=== PATIENT | female | born 1960 | race Caucasian/White ===

== ENCOUNTER 2024-07-08 08:26 | Emergency (ER) | payer MEDICARE, SELFPAY ==
--- NOTE | ~2024-07-08 | XR_ITS ---
XR shoulder RT min 2V Ordering provider: Lindsay Domingo NP History: . FALL FORWARDS WITH ARMS OUT, GEN PAIN . Comparison: None. FINDINGS: BONES: No acute fracture or dislocation. JOINT SPACES: The acromioclavicular joint is normal. The glenohumeral joint is normal. SOFT TISSUES: Normal. IMPRESSION: No acute osseous abnormality right shoulder. Reviewed, dictated and finalized at location A.
--- NOTE | ~2024-07-08 | XR_ITS ---
EXAMINATION: XR thoracic spine 3V DATE: 07/08/2024 09:11 INDICATION: Fall. Thoracic spine pain. TECHNIQUE: 3 views of thoracic spine were obtained. COMPARISON: None. FINDINGS: There is fatty resection curvature thoracic spine. Vertebral body heights are normal. There is mild to moderately decreased disc height at multiple levels, worst in the mid and upper thoracic spine. IMPRESSION: 1. Moderate thoracic spondylosis. Reviewed, dictated and finalized at location A.
[2024-07-08 08:38] VITALS: BP 112/73; PULSE 71; RESP 16; TEMP 36.3; O2SAT 100
--- NOTE | 2024-07-08 08:42 | ED.FALL ---
HPI - Fall General Chief Complaint: Fall Stated Complaint: Fall Injury/Back Pain/Right Shoulder Time Seen by Provider: 07/08/24 08:42 Source: patient Mode of arrival: ambulatory Limitations: no limitations History of Present Illness HPI Narrative: 64-year-old female presents with complaint of mid back pain and right shoulder pain. Patient states that she fell approximately 2 weeks ago. It was raining outside and she slipped on wet floor in baked lobby. But arms down to catch herself. Did not hit her head. Patient states mother recently and has been cleaning out home. Is moving a lot of furniture. Taking [id number] Tylenol To treat pain. Pain worse with movement. Wants to make sure she does not have fracture. All systems reviewed and negative except as noted above. Related Data Home Medications Medication Instructions Recorded Confirmed hydrochlorothiazide 12.5 mg tablet 12.5 mg PO DAILY 07/08/24 07/08/24 metformin 500 mg tablet 500 mg PO QAM 07/08/24 07/08/24 pregabalin 50 mg capsule 50 mg PO BID 07/08/24 07/08/24 tizanidine 4 mg tablet 4 mg PO Q8H PRN MUSCLE SPASMS 07/08/24 07/08/24 Allergies Allergy/AdvReac Type Severity Reaction Status Date / Time No Known Allergies Allergy Verified 07/08/24 09:09 Review of Systems Review of Systems: CONSTITUTIONAL: Denies fever, chills, or sweats. EYES: Denies visual changes, redness, or discharge. ENT: Denies rhinorrhea, congestion, sore throat, or otalgia. CARDIOVASCULAR: Denies chest pain, palpitations, or edema. RESPIRATORY: Denies cough or dyspnea. GASTROINTESTINAL: Denies abdominal pain, nausea, vomiting, or diarrhea. GENITOURINARY: Denies dysuria or hematuria. SKIN: Denies rash or itching. MUSCULOSKELETAL: Reports mid/ upper back pain. reports right shoulder pain. Denies joint pain, or myalgia. NEUROLOGIC: Denies headache, numbness, or weakness. PSYCHIATRIC: Denies anxiety or depression. All other systems reviewed are negative, except as documented in HPI. PMFSH Comments At time of signature, agree with nursing past medical, surgical, social and family history. There is no relevant family history pertinent to the presenting complaint. Exam Narrative: GENERAL: This is a well-nourished, well-developed patient, in no apparent distress. HEAD: normocephalic, atraumatic. EYES: PERRL. Sclera clear/white. Vision is grossly intact. EARS: External ears normal NOSE: External nose normal NECK: Neck supple, non-tender without lymphadenopathy, masses or thyromegaly. CARDIOVASCULAR: Regular rate and rhythm without murmurs, gallops, or rubs. RESPIRATORY: Clear to auscultation. Breath sounds equal bilaterally. No wheezes, rales, or rhonchi. SKIN: warm, Dry, intact with no suspicious lesions or rash, good texture and turgor. NEURO: awake, alert, and oriented to person, place and time. There were no obvious focal neurologic abnormalities. EXTREMITIES: Generalized tenderness to right shoulder, no point tenderness. Range of motion and strength intact. Negative drop-arm test. BACK: tenderness T6,T7. no deformity Course Course Level of Care: Express Care Visit Vital Signs Vital signs: Vital Signs Temperature 36.3 C L 07/08/24 08:38 Pulse Rate 71 07/08/24 08:38 Respiratory Rate 16 07/08/24 08:38 Blood Pressure 112/73 07/08/24 08:38 Pulse Oximetry 100 07/08/24 08:38 Oxygen Delivery Room Air 07/08/24 08:38 Temperature 36.3 C L 07/08/24 08:38 Pulse Rate 71 07/08/24 08:38 Respiratory Rate 16 07/08/24 08:38 Blood Pressure 112/73 07/08/24 08:38 Pulse Oximetry 100 07/08/24 08:38 Oxygen Delivery Room Air 07/08/24 08:38 Reviewed MDM - Fall MDM Narrative Medical decision making narrative: discussed x-ray results with patient. Right shoulder and thoracic spine negative for fracture. Recommend patient take [id number] Tylenol to treat pain. Prescribed methocarbamol. Will follow up with chirag
== END 2024-07-08 09:53 | disposition home or self-care (01) ==
PROVIDERS: Emergency Provider Nurse Practitioner Family; PCP Nurse Practitioner Family
DX: S46.911A Strain of unspecified muscle, fascia and tendon at shoulder and upper arm level, right arm, initial encounter (principal); S29.012A Strain of muscle and tendon of back wall of thorax, initial encounter; W01.0XXA Fall on same level from slipping, tripping and stumbling without subsequent striking against object, initial encounter; E11.9 Type 2 diabetes mellitus without complications; Z79.84 Long term (current) use of oral hypoglycemic drugs
CPT/HCPCS: 72072; 73030; 99204; G0463

== ENCOUNTER 2024-07-19 09:28 | Emergency (ER) | payer MEDICARE, SELFPAY ==
[2024-07-19 09:39] VITALS: BP 122/74; PULSE 63; RESP 16; TEMP 36.8; O2SAT 100
--- NOTE | 2024-07-19 10:25 | ECG_ITS ---
Test Date: 2024-07-19 10:31:39 Measurements Intervals [place] Rate: 56 P: 13 NJ: 160 QRS: -41 QRSD: 85 T: 21 QT: 475 QTc: 459 Interpretive Statements SINUS RHYTHM LEFT AXIS DEVIATION PATTERN CONSISTENT WITH PULMONARY DISEASE BASELINE ARTIFACT- I, II, III, AVR, AVL, AVF, V1, V4-V5 BORDERLINE ECG No previous ECG available for comparison Electronically Signed On 07-19-2024 11:18:29 CDT by Jonathon Padgett D.O.
--- NOTE | 2024-07-19 10:27 | ED.GENADULT ---
HPI - General Adult General Chief complaint: Ear Stated complaint: Dizziness/Ringing in Ear Source: patient Mode of arrival: ambulatory Limitations: no limitations History of Present Illness HPI narrative: Patient presents for evaluation of dizziness. Symptom onset 3 days ago. Symptoms are intermittent, occurring approximately 8 times per day and lasting minutes. Symptoms tend to occur when moving from sitting to standing position. She also reports tinnitus and the sensation of the room spinning. She has an occasional cough. She denies any fever, chills, nausea, vomiting, shortness of breath, urinary symptoms, chest pain. No history of similar symptoms. She is diabetic and adherent to metformin therapy. Blood sugars at home around 125. Related Data Home Medications Medication Instructions Recorded Confirmed hydrochlorothiazide 12.5 mg tablet 12.5 mg PO DAILY 07/08/24 07/19/24 metformin 500 mg tablet 500 mg PO QAM 07/08/24 07/19/24 pregabalin 50 mg capsule 50 mg PO BID 07/08/24 07/19/24 tizanidine 4 mg tablet 4 mg PO Q8H PRN MUSCLE SPASMS 07/08/24 07/19/24 Allergies Allergy/AdvReac Type Severity Reaction Status Date / Time No Known Allergies Allergy Verified 07/19/24 09:43 Review of Systems Review of Systems: CONSTITUTIONAL: Denies fever, chills, or sweats. EYES: Denies visual changes, redness, or discharge. ENT: Reports tinnitus. Denies rhinorrhea, congestion, sore throat, or otalgia. CARDIOVASCULAR: Denies chest pain, palpitations, or edema. RESPIRATORY: Reports mild cough. Denies dyspnea. GASTROINTESTINAL: Denies abdominal pain, nausea, vomiting, or diarrhea. GENITOURINARY: Denies dysuria or hematuria. SKIN: Denies rash or itching. MUSCULOSKELETAL: Denies back pain, joint pain, or myalgia. NEUROLOGIC: Reports dizziness and sensation of the room spinning PSYCHIATRIC: Denies anxiety or depression. [facility] Past Medical History Medical History Diabetes HTN (hypertension) Surgical History Surgical History No pertinent past surgical history Family History Family History (Updated 07/19/24 @ 10:33 by ALAN Tinoco, ) Mother Family history non-contributory Social History Social History Substance use: never Living arrangements: with family Gender identity (if verbalized by the patient): Female Sexual Orientation (if Verbalized by the Patient): Straight or Heterosexual Spiritual care concerns: No Exam Narrative: GENERAL: Well-appearing, well-nourished, and in no acute distress. HEAD: Normocephalic, atraumatic. EYES: PERRLA and EOMI. ENT: Nares clear, no rhinorrhea or epistaxis. Mucous membranes moist. Oropharynx without tonsillar hypertrophy exudate or other lesions. Bilateral TMs pearly thorpe nonbulging NECK: Supple. No adenopathy or masses. No carotid bruits or JVD CHEST: Clear to auscultation. No respiratory distress. No wheezes rales or rhonchi HEART: Regular rate and rhythm. No murmur heard. Normal peripheral pulses. ABDOMEN: Soft, nontender, nondistended, normal active bowel sounds. EXTREMITIES: Normal range of motion. No edema. SKIN: Warm, dry, no rash. NEURO: No focal deficits. Alert and oriented x3. PSYCH: Normal mood and affect. Course Course Emergency Course: This is a 64-year-old female who presented for evaluation tinnitus, sensation of the room spinning and dizziness. COVID and influenza negative. EKG with no acute ischemic changes. UA with 1+ leukocytes. Exam is consistent with UTI and vertigo. I offered to send her to the ER for lab work. She declined. Will DC with Bactrim and meclizine. Increase hydration. Follow up with primary provider. Go to the ER for worsening symptoms. Patient in agreement with plan of care Level of Care: Express Care Visit Vital Signs V
[2024-07-19 10:32] VITALS: BP 131/75; PULSE 56
[2024-07-19 10:35] VITALS: BP 131/85; PULSE 69
[2024-07-19 10:38] VITALS: BP 118/79; PULSE 72
[2024-07-19 10:56] LABS: EDINFLUASCREEN Negative; EDINFLUBSCREEN Negative; EDUAAPPEAR Clear; EDUABILI Negative; EDUABLOOD Negative; EDUACOLOR1 Yellow; EDUAGLUCOSE Negative; EDUAKETONE Negative; EDUALEUKO 1+; EDUANITRATE Negative; EDUAPROTEIN Negative; EDUASPGRAVITY 1.015; EDUAUROBILI 0.2
== END 2024-07-19 11:00 | disposition home or self-care (01) ==
PROVIDERS: Emergency Provider Nurse Practitioner; PCP Nurse Practitioner Family
DX: H93.19 Tinnitus, unspecified ear (principal); R42 Dizziness and giddiness; N39.0 Urinary tract infection, site not specified; Z20.822 Contact with and (suspected) exposure to COVID-19; E11.9 Type 2 diabetes mellitus without complications; Z79.84 Long term (current) use of oral hypoglycemic drugs; I10 Essential (primary) hypertension
CPT/HCPCS: 81003; 87086; 87426; 87804; 93005; 99213; G0463

== ENCOUNTER 2024-12-22 09:15 | Emergency (ER) | payer MEDICARE, SELFPAY ==
--- NOTE | ~2024-12-22 | XR_ITS ---
EXAMINATION: XR ribs RT 2V DATE: 12/22/2024 09:59 INDICATION: Right chest pain. Fall. TECHNIQUE: 2 views of the right ribs on 4 radiographs were obtained. COMPARISON: None. FINDINGS: There is no right-sided pneumonia, pleural effusion, or pneumothorax. The heart size is nor mal. IMPRESSION: 1. No rib fracture. Reviewed, dictated and finalized at location A. ODUCTION SPECIALIST IMPRESSION: 1. No rib fracture.
--- NOTE | ~2024-12-22 | XR_ITS ---
AP and lateral views of the right hip Clinical history: Pain Findings: No acute fracture or dislocation is seen. Osseous alignment is anatomic. Right hip joint is intact. Soft tissues are unremarkable. Impression: No significant abnormality is seen. Reviewed, dictated and finalized at location M. GHT SERVICE INSPECTOR Impression: No significant abnormality is seen.
[2024-12-22 09:22] VITALS: BP 133/92; PULSE 80; RESP 20; TEMP 36.6; O2SAT 100
--- NOTE | 2024-12-22 09:29 | ED.LOWEXIN ---
HPI - Extremity Injury (Lower) General Chief Complaint: Extremity Injury, Lower Stated Complaint: right hip & knee injury Source: patient Mode of arrival: ambulatory Limitations: no limitations History of Present Illness HPI Narrative: 64-year-old female presented for complaint of right rib, right hip, and right knee pain after fall yesterday. She states she was walking up the stairs, missed the 1st step and fell landing on hands and knees as well as striking the rib and hip. Denies shortness of breath, hemoptysis, wheezing, nausea, vomiting, or dizziness. Took ibuprofen. started using a quad cane for symptoms. Denies numbness, tingling, weakness of the lower extremities, or change in gait, saddle paresthesia or loss of bowel or bladder. Related Data Home Medications ?Medication ?Instructions ?Recorded ?Confirmed ?Last Taken ?Type hydrochlorothiazide 12.5 mg tablet 12.5 mg PO DAILY 07/08/24 07/19/24 Unknown History metformin 500 mg tablet 500 mg PO QAM 07/08/24 07/19/24 Unknown History pregabalin 50 mg capsule 50 mg PO BID 07/08/24 07/19/24 Unknown History tizanidine 4 mg tablet 4 mg PO Q8H PRN MUSCLE SPASMS 07/08/24 07/19/24 Unknown History atorvastatin 80 mg tablet mg 12/22/24 Unknown History omeprazole 40 mg capsule,delayed mg 12/22/24 Unknown History release Allergies Allergy/AdvReac Type Severity Reaction Status Date / Time No Known Allergies Allergy Verified 12/22/24 09:34 Review of Systems Review of Systems: CONSTITUTIONAL: Denies body aches, fever, chills EYES: Denies visual changes ENT: Denies rhinorrhea, congestion CARDIOVASCULAR: Denies chest pain, palpitations, or edema. RESPIRATORY: Denies cough or dyspnea. GASTROINTESTINAL: Denies abdominal pain, nausea, vomiting, or diarrhea. SKIN: Denies rash, itching, or wounds. MUSCULOSKELETAL: per HPI NEUROLOGIC: Denies headache, numbness, tingling, or weakness. All systems reviewed & are unremarkable except as noted in HPI and below PMFSH Past Medical History Medical History HTN (hypertension) Diabetes Surgical History Surgical History No pertinent past surgical history Family History Family History Mother Family history non-contributory Social History Social History Substance use: never Living arrangements: with family Gender identity (if verbalized by the patient): Female Sexual Orientation (if Verbalized by the Patient): Straight or Heterosexual Spiritual care concerns: No Comments At time of signature, I have reviewed and agree with nursing past medical, surgical, social and family history unless otherwise noted. Please see nursing chart for further information. There is no relevant family history pertinent to the presenting complaint Exam Narrative: GENERAL: Well-appearing CHEST: Speaks in full sentences. No respiratory distress. HEART: Regular rate and rhythm. Normal and equal peripheral pulses. EXTREMITIES: RLE has normal strength and sensation, normal range of motion at knee and hip, reports pain with movement. No edema or ecchymosis to hip or knee. posterior hip tenderness with palpation. No open wounds, skin tenting, or obvious deformity; alignment normal, pulse palpable and equal bilaterally, skin warm, dry, pink. Capillary refill less than 3 seconds. Ambulating using Quad cane. MUSC: right lateral rib tender with palpation approx 6-7 area. SKIN: Warm, dry, no rash. NEURO: Alert and oriented x3. PSYCH: Normal mood and affect Course Course Emergency Course: Patient is aware of diagnosis, understands and agrees to treatment plan. Anticipatory guidance given. Patient agrees to follow-up as directed and is aware of reasons to seek care at the emergency department. Portions of this record may have been created with voice recognition software Level of Care: Express Care Visit Vital Signs Vital signs: Vital Signs Temperature 97.8 F 12/22/24 09:22 Pulse Rate 80 12/22/24 09:22 Respiratory Rate 20 12/22/24 09:22 Blood Pressure 133/92 H 12/22/24 09:22 Pulse Oximetry 100 12/22/24 09:22 Oxygen Delivery Room Air 12/22/24 09:22 Temperature 97.8 F 12/22/24 09:22 Pulse Rate 80 12/22/24 09:22 Respiratory Rate 20 12/22/24 09:22 Blood Pressure 133/92 H 12/22/24 09:22 Pulse Oximetry 100 12/22/24 09:22 Oxygen Delivery Room Air 12/22/24 09:22 Reviewed MDM - Extremity Injury (Lower) MDM Narrative Medical decision making narrative: Discussed physical exam findings and xrays of right hip and ribs. Advised supportive measures and signs/symptoms to go to the ER. Pt is appropriate for outpt treatment and f/u. Differential Diagnosis Differential diagnosis: Likely other (Hip dislocation, impingement, femur fracture, pelvic fracture, hip bursitis, psoas abscess, piriformis syndrome, septic arthritis, osteoarthritis, avascular necrosis of hip, lumbar radiculopathy) Discharge Plan Discharge Clinical Impression: Rib pain on right side, Hip pain, acute Patient Disposition: Home, Self-Care Condition: Stable Instructions: Antibiotic Form, Hip Contusion (ED), Rib Contusion (ED) Additional Instructions: Rest. Avoid running or excessive walking or anything that worsens the symptoms Tylenol 1000mg every 8 hours as needed You can alternate with ibuprofen 600mg Alternate ice/heat to the site. Lidocaine or salon pas pain patch or use pain cream like icy/hot or biofreeze. Follow up with your primary care provider as needed in 1 week Go to the ER for worsening symptoms or concerns Patient Language: Slovenian Prescriptions: No Action meclizine 25 mg tablet 25 mg PO TID PRN (Reason: dizziness) Qty: 15 0RF atorvastatin 80 mg tablet omeprazole 40 mg capsule,delayed release(DR/EC) metformin 500 mg tablet 500 mg PO QAM hydrochlorothiazide 12.5 mg tablet 12.5 mg PO DAILY pregabalin 50 mg capsule 50 mg PO BID tizanidine 4 mg tablet 4 mg PO Q8H PRN (Reason: MUSCLE SPASMS) methocarbamol 500 mg tablet 500 mg PO Q6H PRN (Reason: muscle pain/spasm) Qty: 30 0RF Follow-up/Referrals: Violet,Lindsay Carcamo NP [Primary Care Provider] - Time of Disposition: 10:27
--- OUTSIDE RECORDS SUMMARY | 2024-12-22 09:50 | XMS_ITS | Referral Summary ---
Author Organization [facility] Address [address] [place] [address] Care Team Providers Care Receivable Manager Name Role Phone Evans Coelho DO Unavailable [phone] Selvin Lawrence MD Primary Care Provider [phone] Encounters Date Type Department Care Team Description 10/21/2024 ACO Clinical Pharmacist [facility] [address] [address] Xiomara Jordan RPh 09/24/2024 Telephone [facility] [address] [address] Selvin Lawrence MD Test Results 09/23/[address] [address] Tomasa Garrett Unsuccessful Phone Call 1 ([employer] dm eye exam) from Last 3 Months Allergies No known active allergies Medications blood glucose diagnostic (FREESTYLE LITE STRIPS) stripIndicatio ns:Type 2 diabetes mellitus without complication, without long-term current use of insulin ([facility]) ([facility]) Use one strip BID 100 each 3 05/26/20 18 Active blood-glucose meter (FreeStyle Girard Lite) kit Use as directed 1 each 05/30/20 20 Active Restasis 0.05 % ophthalmic emulsion Administer 1 drop into both eyes every 12 (twelve) hours 05/12/20 21 Active witch Bienvenido (TUCKS) 50 % pads, medicatedIndic ations:Hemorrh oids Apply topically 5 times daily as needed (Hemorrhoids) After BM's as needed 100 each 1 01/05/20 22 Active polyethylene glycol (MIRALAX) 17 gram/dose powder Take 17 g by mouth 2 (two) times a day as needed 05/22/20 22 Active senna 8.6 mg tablet TAKE 1 TABLET BY MOUTH 2 TIMES DAILY NEEDED FOR CONSTIPATION - 3RD LINE. 05/22/20 22 Active cyanocobalamin (Vitamin B-12) 1,000 mcg tablet TAKE 1 TABLET BY MOUTH EVERY DAY 90 tablet 1 10/19/20 22 Active lisinopriL (PRINIVIL,ZEST RIL) 40 mg tablet Take 1 tablet (40 mg total) by mouth daily 90 tablet 3 12/18/19 23 Active oxybutynin (DITROPAN) 5 mg tablet Take 1 tablet (5 mg total) by mouth daily 90 tablet 3 12/18/19 23 Active magnesium oxide 400 mg magnesium capsule Take 1 capsule by mouth daily Active naproxen (NAPROSYN) 500 mg tabletIndicati ons:Left wrist pain,Left hand pain Take 1 tablet (500 mg total) by mouth 2 (two) times a day as needed for pain (pain) for up to 7 days 14 tablet 07/02/20 23 Active citalopram (CeleXA) 20 mg tablet TAKE 1 TABLET BY MOUTH EVERY DAY 90 tablet 3 01/08/20 24 Active hydroCHLOROthi azide 12.5 mg tablet TAKE 1 TABLET BY MOUTH EVERY DAY 90 tablet 3 06/01/20 24 Active tiZANidine (ZANAFLEX) 4 mg tablet TAKE 1 TABLET BY MOUTH EVERY 8 HOURS NEEDED FOR MUSCLE SPASMS 270 tablet 1 07/09/20 24 Active phenazopyridin e (PYRIDIUM) 100 mg tablet Take 1 tablet (100 mg total) by mouth 3 (three) times a day as needed for urinary pain 10 tablet 07/09/20 24 Active metFORMIN (GLUCOPHAGE) 500 mg tablet TAKE ONE TABLET BY MOUTH WITH BREAKFAST. 90 tablet 3 09/07/20 24 Active methocarbamoL (ROBAXIN) 500 mg tablet TAKE 1 TABLET BY MOUTH EVERY 6 HOURS NEEDED FOR MUSCLE PAIN OR SPASMS 07/09/20 24 Active omeprazole (PriLOSEC) 40 mg capsule Take 1 capsule (40 mg total) by mouth daily 30 capsule 11 09/08/20 24 025 Active atorvastatin (LIPITOR) 80 mg tablet Take 1 tablet (80 mg total) by mouth daily 90 tablet 4 09/08/20 Active flash glucose scanning reader (FreeStyle Yair 2 Roscoe) misc Use as directed to monitor blood sugars 1 each 09/08/20 24 Active flash glucose sensor (FreeStyle Yair 2 Sensor) kit Use as directed to monitor blood sugar 1 kit 3 09/08/20 24 Active pregabalin (LYRICA) 50 mg capsule TAKE 1 CAPSULE BY MOUTH TWICE A DAY 60 capsule 12/14/19 25 Active pregabalin (LYRICA) 50 mg capsule TAKE 1 CAPSULE BY MOUTH TWICE A DAY 60 capsule 11/03/20 24 025 Discontinued Active Problems Problem Noted Date Diagnosed Date Other chest pain 09/08/2024 Assessment & Plan (09/08/2024 8:52 AM CDT): Likely related to GERD. Will switch to omeprazole. Will also order echo to rule out any valvular disorders. Red flags reviewed. Acute cystitis without hematuria 07/09/2024 Assessment & Plan (07/09/2024 3:56 PM CDT): UA dipstick completed. Abx sent. Aware to complete full course of abx. Reviewed abx Ses/scheduling. Push fluids. UA sent for culture. Will call once results rec'd. Red flags reviewed. Hypertension associated with diabetes 12/18/2023 Assessment & Plan (09/08/2024 8:51 AM CDT): Normotensive. Will continue lisinopril hydrochlorothiazide at this time. Reviewed heart healthy diet. See plan as above as well. Assessment & Plan (07/09/2024 3:59 PM CDT): Well controlled on hydrochlorothiazide, lisinopril. No changes. Will continue to monitor. Assessment & Plan (12/18/2023 10:32 AM WHIRLEY OPERATOR): Normotensive. Continue lisinopril, hydrochlorothiazide. Will continue to monitor. Reviewed dash diet. DAREN (acute kidney injury) 06/16/2022 High anion gap metabolic acidosis 06/16/2022 Lactic acidosis 06/16/2022 Hospital discharge follow-up 06/06/2022 Assessment & Plan (06/06/2022 9:46 AM CDT): I have reviewed the hospital record, medications, and relevant testing from Radha Torres's recent admission. Complications and discharge plan have been noted, reviewed. Post-discharge testing has not been ordered. Recommend ice to the area 3-4 times a day, 20 minutes Voltaren OTC to area 3 times a day x 1-2 weeks Avoid excessive sitting without using Roho cushion Acute renal failure (ARF) 05/20/2022 Constipation 05/20/2022 HLD (hyperlipidemia) 05/20/2022 Hypochloremia 05/20/2022 Hypokalemia 05/20/2022 Hyponatremia 05/20/2022 Assessment & Plan (09/08/2024 8:51 AM CDT): Chronic. She does take hydrochlorothiazide. Has been on for quite some time. Admits she has been drinking a lot of water lately. Will decreased p.o. water intake. Recheck BMP next week. If not improved may consider dose decrease of hydrochlorothiazide. Red flags reviewed. She is in agreement with plan and states understanding. Hypotension 05/20/2022 Normocytic anemia 05/20/2022 Stercoral colitis 05/20/2022 Encounter for Medicare annual wellness exam 07/20 Assessment & Plan (09/08/2024 7:59 AM CDT): Visit preventive in nature. We reviewed medications, chronic conditions, risk factors, lifestyle recommendations. Reviewed immunization recommendations. Follow-up in 6 months for chronic conditions and 1 year for annual wellness. Assessment & Plan (10/03/2021 10:56 AM WHIRLEY OPERATOR): AWV in office today Patient needs cervical cancer screen, will plan to do at upcoming visits. Due for mammogram, ordered SLUMS score today 20, will repeat in 3 months at [facility] Assessment & Plan (08/16/2020 10:11 AM CDT): Yearly medicare AWV performed today. The patient is not up to date on screening tests. she is in need of cervical cancer screening- these have been ordered; the eye exam record will be obtained from [facility]. she is not up to date on needed preventative vaccinations; needed vaccinations have been ordered unless otherwise declined as noted. Traumatic ulceration of tongue 05/12/2020 Assessment & Plan (05/12/2020 11:30 AM CDT): Magic mouthwash to decrease inflammation Strongly encourage follow up with a dentist due to causative agent being the sharp piece of remaining first molar tooth Very soft diet Would recommend biopsy if not healed 8 weeks after dental care provided to this tooth Dental caries 05/12/2020 Assessment & Plan (05/12/2020 11:29 AM CDT): Magic mouthwash to decrease inflammation Strongly encourage follow up with a dentist due to causative agent being the sharp piece of remaining first molar tooth Very soft diet Dental contact information provided to patient Diabetic cataract, associate d with type 2 diabetes mellitus ([facility]) 10/31/2018 Assessment & Plan (08/16/2020 10:13 AM CDT): Continues follow up with eeg technician; we will get her last visit note from earlier in the year. Excessive ear wax, bilateral 04/11/2018 Assessment & Plan (04/11/2018 4:13 PM CDT): Excessive Ear Wax Prevention Cerumen accumulation or excessive ear wax can cause symptoms like-Hearing loss ?Earache ?Ear fullness ?Itchiness ?Reflex cough ?Dizziness ?Tinnitus Normal ears use a cotton ball dipped in mineral oil, olive oil, Baby oil, or Godwin oil and place in the external canal for 10 to 20 minutes once per week. For Chronic cerumen impactions can perform on a scheduled baseis-3 drops of olive oil or Baby oil in each ear, three times daily for Three weeks, Three times per year. Routine cleaning of the ears by a health professional every 6 to 12 months is also suggested. Patients should be instructed that chronic use of cotton swabs or cerumenolytics should not be performed. Cerumenolytics are safe to use in patients with NO history of infections, perforations, or otologic surgery. Cerumenolytics should be avoided if tympanic membrane damage is suspected. If a patient has a history of drainage from the ear, ear pain, or frequent ear infections earlier in life, then the tympanic membrane may be impaired and cerumenolytics should not be employed. If safe for you, use Debrox drops, Hydrogen peroxide or Benzalkonium Chloride softening agents Class 1 obesity due to exces s calories with serious comorbidity and body mass index (BMI) of 31.0 to 31.9 in adult 04/11/2018 Assessment & Plan (04/20/2022 8:51 AM CDT): Patient here today to discuss chronic conditions and discuss labs/have labs ordered Assessment & Plan (01/05/2022 8:45 AM WHIRLEY OPERATOR): Healthy, low carbohydrate lifestyle and exercise for 150min/week recommended Assessment & Plan (10/03/2021 10:54 AM WHIRLEY OPERATOR): Healthy, low carbohydrate lifestyle and exercise for 150min/week recommended Assessment & Plan (08/09/2021 12:14 PM CDT): Wt Readings from Last 3 Encounters: 08/09/21 82.1 kg (181 lb 1.6 oz) 06/14/21 84.7 kg (186 lb 11.2 oz) 05/24/21 86.4 kg (190 lb 6.4 oz) Body mass index is 33.12 kg/m??. - BMI Follow-up includes: nutrition counseling, exercise counseling and education provided \ Assessment & Plan (06/14/2021 8:59 AM CDT): Healthy, low carbohydrate lifestyle and exercise for 150min/week recommended Assessment & Plan (05/24/2021 10:40 AM CDT): Healthy, low carbohydrate lifestyle and exercise for 150min/week recommended Assessment & Plan (04/11/2018 4:42 PM CDT): Obesity is unchanged. Discussed the patient's BMI. The BMI is above average; BMI management plan is completed. Diet interventions: low calorie (1000 kCal/d) deficit diet. Diet= low-carb Limit white bread, rice, pasta, potatoes, juice, energy drinks, coffee creamers with sugar, sugar sodas, candy, cake, cookies, ice cream. Be more careful with starchy vegetables like corn, carrots, and fruits. Stay away from processed foods, fast foods, fried foods. The cornerstone of this diet is lean grilled meats, green salads or cooked greens, fat-free milk, cottage cheese, nuts like [id number], protein bars with 10-15 g of protein and 20-30 g of carbohydrate. Choose whole grain breads and pastas, brown rice, sweet potatoes, read onions--these whole grains absorb more slowly thus blood sugar does not surge so high so quickly. Avoid drinking juice, eat a piece of fruit instead. Tremor of both hands 12/02/2017 Assessment & Plan (12/04/2017 7:43 AM WHIRLEY OPERATOR): New onset. Will discuss with dr. Dyer , who agreed with neurology referral, and refer to neurology. Pt was agreeable with plan of care. Eczema of right hand 07/30/2017 Assessment & Plan (07/30/2017 12:04 PM CDT): Discussed use of steroid cream twice daily for 2-3 weeks and then stop using for 2-3 weeks. Continue use of emollient lotion either commercially prepared or vaseline or crisco at night over steroid lotion. Depression with anxiety 07/30/2017 Assessment & Plan (04/20/2022 8:51 AM CDT): Mood is stable on the Celexa 20 mg Denies SI Assessment & Plan (01/05/2022 8:44 AM WHIRLEY OPERATOR): Mood is stable on the Celexa 20 mg Denies SI Assessment & Plan (10/03/2021 10:54 AM WHIRLEY OPERATOR): Mood is stable on the Celexa 20 mg Denies SI Assessment & Plan (08/16/2020 10:13 AM CDT): Controlled. We are continuing citalopram 20 mg daily Assessment & Plan (09/30/2017 10:49 AM WHIRLEY OPERATOR): Psychological condition is improving with treatment. Continue current treatment regimen. Psychological condition will be reassessed 6 months. Assessment & Plan (07/30/2017 1:25 PM CDT): Discussed starting a medication and pt is agreeable. Will start celexa . Discussed starting dose and titration to full dose, possible SE and time frame for expected results. Call if any suicidal thoughts or questions concerning SE. Do not abruptly stop medication without calling office. Follow up in 3-4 weeks for recheck and continuation of medications. Diabetic polyneuropathy asso ciated with type 2 diabetes mellitus ([facility]) 07/30/2017 Assessment & Plan (09/08/2024 8:50 AM CDT): No acute changes. Continue monitoring feet daily. Assessment & Plan (07/09/2024 3:59 PM CDT): Continue monitoring feet daily. Always wear good supportive shoes. Continue with good blood glucose control. Assessment & Plan (10/03/2021 10:54 AM WHIRLEY OPERATOR): Neuropathy stable, continues Lyrica Assessment & Plan (08/16/2020 10:15 AM CDT): Labs are pending From her report, she seems to be getting good control; we'll review the a1c of course Neuropathy stable, will continue pregabalin (no side effects) For now, will continue on the current regimen HMV in 3 mos Assessment & Plan (07/31/2017 8:17 AM CDT): Having increased neuropathy pain. Will increase lyrica every 3-5 days until up to 50mg three times daily. She finds it helpful to take a dose in the afternoon. I think she would benefit from diabetic shoe wear to help protect her feet with loss of sensation. F/u 1 month for recheck Stress incontinence of urine 04/02/2015 Assessment & Plan (10/03/2021 10:52 AM WHIRLEY OPERATOR): Stable, continues Oxybutynin Type 2 diabetes mellitus with hyperlipidemia 09/2015 Assessment & Plan (09/08/2024 8:55 AM CDT): A1c 6.2%. Will continue metformin. Continue with diabetic diet. Will continue to monitor. Red flags reviewed. LDL uncontrolled. Upon questioning she has been out of atorvastatin for a very long time. Maybe even a year. States she does need a refill. We did refill the atorvastatin today. Encouraged compliance. Will recheck lipid panel upon return. Assessment & Plan (07/09/2024 4:11 PM CDT): A1c 6%. Keep up the great work! Continue metformin. Will continue to monitor. Assessment & Plan (12/18/2023 10:32 AM WHIRLEY OPERATOR): A1c 5.9%. Keep up the great work! Will continue to monitor. Assessment & Plan (04/20/2022 8:48 AM CDT): Continues Metformin 500 mg daily Last A1c x 3 months ago was 6.5%, will get A1c today with other labs patient is due for. Assessment & Plan (01/05/2022 8:43 AM WHIRLEY OPERATOR): Awaiting labs, continues Atorvastatin 80 mg daily Denies side effects Assessment & Plan (10/03/2021 10:53 AM WHIRLEY OPERATOR): Lipid panel well controlled, continues Lipitor Assessment & Plan (08/16/2020 10:12 AM CDT): Lipid panel yet to be drawn; hopefully we will get today. Continuing atorvastatin, no side effects reported. Assessment & Plan (07/30/2017 1:23 PM CDT): Lipid abnormalities are improving with treatment. Pharmacotherapy as ordered. Lipids will be reassessed today Diabetes mellitus 03/09/2013 Overview (02/23/2017): Diabetes mellitus Assessment & Plan (04/20/2022 8:51 AM CDT): Continues Metformin 500 mg daily Last A1c x 3 months ago was 6.5%, will get A1c today with other labs patient is due for. Assessment & Plan (01/05/2022 8:43 AM WHIRLEY OPERATOR): Awaiting labs, patient to get drawn today Continue Metformin 500 mg daily. Assessment & Plan (10/03/2021 10:52 AM WHIRLEY OPERATOR): A1c is 6.3%, continues Metformin 500 mg daily Due for urine Microalbumin Kidney function noted to decrease, discussed increasing water intake and rechecking prior to next visit. Assessment & Plan (07/30/2017 1:24 PM CDT): Diabetes is improving with lifestyle modifications. Continue current treatment regimen. Regular aerobic exercise. Discussed foot care. recommended she follow back up with flight operations inspector Diabetes will be reassessed in 6 months Labs ordered today. Adiposity 02/05/2013 Assessment & Plan (09/08/2024 8:50 AM CDT): Encourage heart healthy diabetic diet. Assessment & Plan (08/16/2020 10:14 AM CDT): BMI Follow-up includes: nutrition counseling, exercise counseling and education provided. Assessment & Plan (07/30/2017 1:22 PM CDT): BMI Follow-up includes: exercise counseling. Chronic back pain 02/05/2013 Assessment & Plan (10/03/2021 10:52 AM WHIRLEY OPERATOR): Sx stable, continue current regimen. Hypertension due to endocrine disorder 3 Assessment & Plan (04/20/2022 8:50 AM CDT): Initial BP elevated in office today, repeat much improved. Patient continues Lisinopril 40 mg daily, we dc'd pt's HCTZ at prior visit due d/t hypotension and dizziness, both have improved. Pt's home bp's are ranging 110's/70-80's. Assessment & Plan (01/05/2022 8:44 AM WHIRLEY OPERATOR): BP stable in office but patient brings in home bp log and they range 88-105 SBP. Pt does note that she gets light headed at times. Will decrease HCTZ to 12.5 daily. Home BP log and send in numbers in 1 week. Assessment & Plan (10/03/2021 10:53 AM WHIRLEY OPERATOR): Home BP's range 100-120/60-70 Slightly elevated in office today, will have patient keep home BP log and send in BP's in 1 week. Continues Lisinopril, HCTZ for now. Assessment & Plan (06/14/2021 8:58 AM CDT): Home blood pressures are running 120/80 Patient denies any adverse effects Will continue Lisinopril 40 mg daily Assessment & Plan (05/24/2021 11:13 AM CDT): BP elevated today in office Patient to keep home blood pressures and send in readings this Saturday (05/26/21) for possible medication adjustment. Assessment & Plan (08/16/2020 10:12 AM CDT): BP improved, in good range. We will continue lisinopril, hctz. Blood Pressure Follow-up: Lifestyle modifications education provided on sodium reduction, increase physical activity, reduce alcohol consumption and weight reduction. Assessment & Plan (07/30/2017 1:19 PM CDT): BP is stable. Continue current medication. Refills given. Due for labs. GERD (gastroesophageal reflux disease) Assessment & Plan (09/08/2024 8:49 AM CDT): Stop famotidine. Start omeprazole. Avoid dietary triggers. Will monitor response. Assessment & Plan (04/20/2022 8:50 AM CDT): Sx stable, continues Pantoprazole and Famotidine. Assessment & Plan (10/03/2021 10:55 AM WHIRLEY OPERATOR): Sx stable, continues Pantoprazole. Assessment & Plan (11/02/2020 2:17 PM WHIRLEY OPERATOR): Dr. Coelho Gastric emptying study normal Awaiting EGD Assessment & Plan (09/24/2020 9:38 AM WHIRLEY OPERATOR): Adding Pepcid, one tab in the morning, and Protonix/Omeprazole in the evening (omeprazole will continue at 40 mg if Protonix is not covered) Likely we will need GI consultation, to check for damage to the esophageal lining and stomach. Advising to sleep with the head of the bed at 30 degrees; Radha is already doing a decent job avoiding provocative foods. As a supplement, apple cider vinegar has shown some benefit in some people for reflux. Resolved Problems Problem Noted Date Diagnosed Date Resolved Date Acute cystitis with hematuria 04/11/2018 10/31/2018 Assessment & Plan (04/11/2018 4:05 PM CDT): Complete antibiotic as prescribed Do not hold your urine. Urinate as soon as you feel the need to go Drink plenty of water and fluids. Limit alcohol, caffeine, and citrus juices- They will irritate the bladder Wipe front to back & wear cotton underwear Try emptying your bladder before and after having sexual intercourse Follow up with your PCP if you are not getting better If you have severe back, flank, or groin pain with nausea/vomiting or are unable to get comfortable from the pain, please go to ER for further treatment Tylenol/Motrin for pain Tremor 01/01/2018 01/01/2019 Acute midline thoracic back pain 09/30/2017 10/31/2018 Assessment & Plan (11/21/2017 8:54 AM WHIRLEY OPERATOR): Will try medrol dose dylan. May continue flexeril and naproxen. I recommended physical therapy. F/u in 4-[address] Dyer to assess progress. Assessment & Plan (09/30/2017 1:00 PM WHIRLEY OPERATOR): Continue flexeril. Pneumonia ruled out with negative chest x-ray and cbc. She has a f/u with Dr. Dyer 10/03 Abnormal vaginal bleeding 02/05/2013 Overview (02/23/2017): Abnormal vaginal bleeding Immunizations Name Administration Dates Next Due Influenza, Quadrivalent, Hig h Dose, Preservative Free, Intrr 12/18/2023 Influenza, Quadrivalent, Spl it, Intramuscular 08/31/2015 Influenza, Quadrivalent, Spl it, Preservative Free, Intramuscular 12/18/2022,08/09/2021,08/16/2020,10/31,07/30/2017 Influenza, Trivalent, High D ose, Split, Preservative Free, Intramuscular 09/08/2024 Influenza, Trivalent, IM (MDV) 08/09/2014,2012 Influenza, Trivalent, Preser vative Free, Intramuscular 08/30/2015 Influenza, Unspecified 08/18/2019(Deferred: Leeann ent Refused) Pneumococcal Conjugate Pcv20 12/18/2023 Tdap 12/19/2020 ZOSTER Recombinant 06/20/2021,08/21/2020 Social History Tobacco Use Types Packs/Day Years Used Date Smoking Tobacco: Never Smokeless Tobacco: Never Tobacco Cessation:Counseling Given: Not Answered Alcohol Use Standard Drinks/Week Comments Not Currently 0 (1 standard drink = 0.6 oz pur e alcohol) Humiliation, Afraid, Rape, and Kick questionnair e Answer Date Recorded Fear of Current or Ex-Partner No Emotionally Abused No 12/18/2019 Physically Abused No 12/18/2019 Sexually Abused No 12/18/2019 Social Connection and Isolation Panel [NHANES] A nswer Date Recorded Frequency of Communication w ith Friends and Family Twice a week 12/18/2019 Frequency of Social Gatherin gs with Friends and Family Once a week 12/18/2019 Attends [employer] Services 1 to 4 times per year 12/18/2019 Active Member of Clubs or Organizations No 12/18/2019 Attends Club or Organization Meetings Never 12/18/2019 Marital Status 12/18/2019 AUDIT-C Answer Date Recorded Q1: How often do you have a drink containing alcohol? Never 12/18/2023 Q2: How many drinks containi ng alcohol do you have on a typical day when you are drinking? Patient does not drink Q3: How often do you have si x or more drinks on one occasion? Never 12/18/2023 Overall Financial Resource Strain (CARDIA) Answe r Date Recorded Difficulty of Paying Living Expenses Not hard at all 12/18/2019 PHQ-2 Answer Date Recorded PHQ-2 Total Score (If total score is 3 or more points, staff should administer the PHQ-9) 0 09/08/2024 [facility] - Occupational Stress Questionnaire Answer Date Recorded Feeling of Stress Not at all 12/18/2019 Exercise Vital Sign Answer Date Recorde d Days of Exercise per Week 7 days 2019 Minutes of Exercise per Session Not on file 12/18/2019 Hunger Vital Sign Answer Date Recorded Worried About Running Out of Food in the Last Ye ar Never true 12/18/2019 Ran Out of Food in the Last Year Never true 12/18/2019 PRAPARE - Transportation Answer Date Re corded Lack of Transportation (Medical) No 12/18/2019 Lack of Transportation (Non-Medical) No 12/18/2019 Comments No Sex and Gender Information Value Date Recorded Sex Assigned at Not on file Legal Sex Female 6:16 PM WHIRLEY OPERATOR Gender Identity Not on file Sexual Orientation Not on file Occupation Industry Job Start Date Job End Date Not on file Not on file Not on file Not on file Last Filed Vital Signs Vital Sign Reading Time Taken Comments Blood Pressure 164/76 09/18/2024 11:53 AM CDT Pulse 95 09/18/2024 11:53 AM CDT Temperature 36.8 ??C (98.2 ??F) 07/09/2024 3:21 PM CD T Respiratory Rate 16 09/08/2024 7:35 AM CDT Oxygen Saturation 97% 07/09/2024 3:21 PM CDT Inhaled Oxygen Concentration - - Weight 81.6 kg (180 lb) 09/08/2024 7:35 AM CDT Height 157.2 cm (5' 1.89 ) 09/08/2024 7:35 AM CD T Body Mass Index 33.04 09/08/2024 7:35 AM CDT Plan of Treatment Not on file Procedures Procedure Name Priority Date/Time Associated Diagnosis Comments EGFR Routine 09/01/2024 9:08 AM CDT Diabetic polyneuropathy associated with type 2 diabetes mellitus (CMS/HCC) (HCC) Hypertension associated with diabetes (HCC) Type 2 diabetes mellitus with hyperlipidemia (HCC) HEMOGLOBIN A1C Routine 09/01/2024 9:08 AM CDT Diabetic polyneuropathy associated with type 2 diabetes mellitus (CMS/HCC) (HCC) Hypertension associated with diabetes (HCC) Type 2 diabetes mellitus with hyperlipidemia (HCC) LIPID PANEL Routine 09/01/2024 9:08 AM CDT Diabetic polyneuropathy associated with type 2 diabetes mellitus (CMS/HCC) (HCC) Hypertension associated with diabetes (HCC) Type 2 diabetes mellitus with hyperlipidemia (HCC) ALBUMIN CREATININE RATIO, URINE Routine 12/18/2023 10:21 AM WHIRLEY OPERATOR Type 2 diabetes mellitus with hyperlipidemia (HCC) Hypertension associated with diabetes (HCC) HM DIABETES EYE EXAM Routine 09/03/2023 SCREENING MAMMOGRAM BILATERAL W ASHWIN Schedule Routine, Read Routine (OP Routine) 02/05/2023 7:50 AM CDT Type 2 diabetes mellitus with hyperlipidemia (HCC) Diabetic polyneuropathy associated with type 2 diabetes mellitus (CMS/HCC) (HCC) Depression with anxiety Hypertension associated with diabetes (HCC) Encounter for screening mammogram for malignant neoplasm of breast HEPATITIS C ANTIBODY Routine 12/18/2019 10:15 AM WHIRLEY OPERATOR Encounter for hepatitis C screening test for low risk patient COLONOSCOPY 01/27/2018 8:21 AM CDT from Last 3 Months or Most Recently Relevant to Health Maintenance Results * (ABNORMAL) eGFR (09/01/2024 9:08 AM CDT) [facility] eGFR 59(L) >=60 mL/min/1. 73 m2 Comment: Interpretive Data Reference Interval Normal ?>/= 90 mL/min/1.73m2 Mildly decreased* ? 60 - 89 mL/min/1.73m2 Mildly to moderately decreased ?45 - 59 mL/min/1.73m2 Moderately to severely decreased ??30 - 44 mL/min/1.73m2 Severely decreased ?15 - 29 mL/min/1.73m2 Kidney Failure ?< 15 ??mL/min/1.73m2 *Relative to young adult level Estimated glomerular filtration rate is determined by the 2020 CKD-EPI equation recommended by the National Kidney Foundation (A Unifying Approach to GFR Estimation: Recommendations of the NKF-ASK Task Force on Reassessing the Inclusion of Race in Diagnosing Kidney Disease, JASN 2020). The CKD-EPI equation should not be used for patients with unstable renal function and has not been validated in children and those over 70. Current interpretive data was last reviewed 2021. Testing performed by: [facility], [address] [place] [address]., [id number] Blood 09/01/2024 9:08 AM CDT 09/01/2024 12:46 PM CDT Johnathan Ibarra NP LAB BLOOD ORDERABLES Final Result CHRISTOPHER LEDBETTER (SUBLIMITY) 1 [facility] Department of Laboratories [place], [place] [id number] * (ABNORMAL) Hemoglobin A1c (09/01/2024 9:08 AM CDT) [facility] Hgb A1C 6.2(H) 4.0 - 5.6 % Comment:Testing performed by : [address] [address] Estimated Average Glucose 131 mg/dL CHRISTOPHER LEDEBTTER (SUBLIMITY) Comment: The ADA recommends reporting an estimated Average Glucose (eAG) with all Hemoglobin A1c results using the equation derived from a study of 507 normal and diabetic adults. ??Minority populations were underrepresented and children were not included. ?? (Diabetes Care 31:4898-4662, 2008). ??The eAG is not equivalent to a fasting glucose. Testing performed by: [facility], [address] [place] [address]., [id number] Blood 09/01/2024 9:08 AM CDT 09/01/2024 12:37 PM CDT Johnathan Ibarra OPERATIONS LOGISTICS ANALYST LAB BLOOD ORDERABLES Final Result CHRISTOPHER LEDBETTER (SUBLIMITY) 1 [facility] Department [place] [address] * (ABNORMAL) Lipid panel (09/01/2024 9:08 AM CDT) Cholesterol 256(H) 30 - 199 mg/dL Comment: Interpretive Data Ages < or = 19 years ??Acceptable: ? <170 mg/dL ??Borderline high: ??170-199 mg/dL ??High: ? >or= 200 mg/dL Ages > or = 20 years ??Desirable: ?<200 mg/dL ??Borderline high: ??200-239 mg/dL ??High: ? >or= 240 mg/dL Literature References: 1. Expert Panel on Integrated Guidelines for Cardiovascular Health and Risk Reduction in Children and Adolescents. Pediatrics 2011;128:S213 2. NCEP Expert Panel. Circulation 2004;110:227 Current Interpretive Data was last revised on 2018. Testing performed by: [facility], [address] [place] [address]., [id number] Triglycerides 67 <=149 mg/dL CHRISTOPHER LEDBETTER (HERMAN) Comment: Interpretive Data Ages < or = 9 years ??Acceptable: ? <75 mg/dL ??Borderline high: ??75-99 mg/dL ??High: ? >or= 100 mg/dL Ages 10 to 20 years ??Acceptable: ? <90 mg/dL ??Borderline high: ??90-129 mg/dL ??High: ? >or= 130 mg/dL Ages > or = 20 years ??Desirable: ?<150 mg/dL ??Borderline high: ??150-199 mg/dL ??High: ? 200-499 mg/dL ?Very high: ?? >or= 499 mg/dL Literature References: 1. Expert Panel on Integrated Guidelines for Cardiovascular Health and Risk Reduction in Children and Adolescents. Pediatrics 2011;128:S213 2. NCEP Expert Panel. Circulation 2004;110:227 Current Interpretive Data was last revised on 2018. Testing performed by: [facility], [address] [place] [address]., [address] HDL 58 >=40 mg/dL CHRISTOPHER LEDBETTER (HERMAN) Comment: Interpretive Data Ages < or = 19 years ??Acceptable: ? >45 mg/dL ??Borderline low: ?? 40-45 mg/dL ??Low: ? <40 mg/dL Ages > or = 20 years ??Desirable: ?>or= 60 mg/dL ??Low: ? <40 mg/dL Literature References: 1. Expert Panel on Integrated Guidelines for Cardiovascular Health and Risk Reduction in Children and Adolescents. Pediatrics 2011;128:S213 2. NCEP Expert Panel. Circulation 2004;110:227 Current Interpretive Data was last revised on 2018. Testing performed by: [facility], [address] [place] [address]., [address] LDL, calculated 187(H) <=129 mg/dL CHRISTOPHER LEDBETTER (HERMAN) Comment: Interpretive Data Ages < or = 19 years ??Acceptable: ? <110 mg/dL ??Borderline high: ??110-129 mg/dL ??High: ?>or= 130 mg/dL Ages > or = 20 years ??Optimal: ? <100 mg/dL ??Near optimal: ?100-129 mg/dL ??Borderline high: ?? 130-159 mg/dL ??High: ?>160 mg/dL Calculated using the Rolly LDL-C estimating equation. This equation was implemented on 2024. Prior to this date LDL-C was estimated using the Friedewald equation. Literature References: 1. Expert Panel on Integrated Guidelines for Cardiovascular Health and Risk Reduction in Children and Adolescents. Pediatrics 2011;128:S213 2. NCEP Expert Panel. Circulation 2004;110:227 3. Rolly Easley et al. CHAPITO Cardiol. 2020 March 18;5(5):540-548. doi: 10.1001/jamacardio.2020.0013 Current Interpretive Data was last revised on 2024. Testing performed by: [address] [address] Non-HDL Cholesterol 198 mg/dL CHRISTOPHER LEDBETTER (HERMAN) Comment: Interpretive Data Ages < or = 19 years ??Acceptable: ?<120 mg/dL ??Borderline high: ??120-144 mg/dL ??High: ?>145 mg/dL Ages > or = 20 years ??When triglycerides are >200 mg/dL, Non-HDL cholesterol is a secondary target of ? therapy with treatment goals that are 30 mg/dL greater than the LDL cholesterol target. ? Literature References: 1. Expert Panel on Integrated Guidelines for Cardiovascular Health and Risk Reduction in Children and Adolescents. Pediatrics 2011;128:S213 2. NCEP Expert Panel. Circulation 2004;110:227 Current Interpretive Data was last revised on 2018. Testing performed by: [facility], [address] [place] [address]., [address] Chol/HDL ratio 4 GABRIELLE LEDBETTER (HERMAN) Comment:Testing performed by : [facility], [address] [place] [address]., [id number] Blood 09/01/2024 9:08 AM CDT 09/01/2024 12:37 PM CDT us Johnathan Ibarra NP LAB BLOOD ORDERABLES Final Result CHRISTOPHER LEDBETTER (HERMAN) 1 [facility] Department [place] [address] * Albumin Creatinine Ratio, Urine (12/18/2023 10:21 AM WHIRLEY OPERATOR) Albumin Ur <12.0 mg/L CHRISTOPHER Liriano (HERMAN) Comment: Interpretive Data No reference range established. Current interpretive data was last revised 2019. Testing performed by: [facility], [address] [place] [address]., [address] Creatinine Ur 96.3 mg/dL CHRISTOPHER LEDBETTER (HERMAN) Comment: Interpretive Data No reference range established. Current interpretive data was last revised 2019. Testing performed by: [facility], [address] [place] [address]., [address] Albumin Creatinine Ratio, Ur <12 1 - 29 mg/g CHRISTOPHER LEDBETTER (HERMAN) Comment:Testing performed by : [address] [address] Urine 12/18/2023 10:2 1 AM WHIRLEY OPERATOR 12/18/2023 4:17 PM WHIRLEY OPERATOR Johnathan Ibarra NP LAB URINE ORDERABLES Final Result CHRISTOPHER ANATOLY (HERMAN) 1 [facility] Department [place] [address] * DIABETES EYE EXAM (09/03/2023) Historical Provider HEALTH MAINTENANCE Final Result * SCREENING MAMMOGRAM BILATERAL W ASHWIN (02/05/2023 7:50 AM CDT) Anatomical Region Laterality Modality Breast Bilateral Mammography 02/05/2023 10:1 4 AM CDT Impressions 02/05/2023 10:14 AM CDT There is no mammographic evidence of malignancy. A 1 year screening mammogram is recommended. BI-RADS: 1 - Negative. The patient has been or will be contacted. The patient will be entered into a reminder system with a target due date of 1 year for her next mammogram. Electronically signed by: David Veras M.D. Narrative 02/05/2023 10:14 AM CDT EXAMINATION: SCREENING MAMMOGRAM BILATERAL W ASHWIN ORDERING HEALTHCARE PROVIDER: JOHNATHAN IBARRA HISTORY: Routine screening mammography. COMPARISON: ??04/15/2020, 12/08/2018, 08/13/2017, 09/09/2015, 03/03/2015 TECHNIQUE: CC and MLO views of the bilateral breasts were obtained with digital technique using breast tomosynthesis with C view. Computer aided detection was utilized. FINDINGS: DENSITY: There are scattered fibroglandular elements in the bilateral breasts. BREASTS: There are no suspicious masses, suspicious calcifications, or other suspicious findings in either breast. There has been no suspicious interval change. us Johnathan Ibarra OPERATIONS LOGISTICS ANALYST IMG MAMMO PROCEDURES Final Result * Hepatitis C antibody (12/18/2019 10:15 AM WHIRLEY OPERATOR) Hep C Ab Negative Negative VIDHIBASIL LEDBETTER (SUBLIMITY) Comment:Testing performed by : [facility], [address] [place] [address], [facility] Blood specimen (specimen) 12/18/2019 10:15 AM WHIRLEY OPERATOR 12/18/2019 7:07 PM WHIRLEY OPERATOR us Edy Dyer MD LAB MICROBIOLOGY - GENERAL ORDERABLES Final Result CHRISTOPHER LEDBETTER (SUBLIMITY) 1 [facility] Department [place] [address] * COLONOSCOPY (01/27/2018 8:21 AM CDT) Anatomical Region Laterality Modality Other Narrative Procedure Note Jose Saunders MD - 01/27/2018 8:21 AM CDT [facility] Patient Name: Radha Torres Procedure Date: 01/27/2018 8:21 AM Date of : 1960 Admit Type: Outpatient Age: 57 Gender: Female Attending MD: Jose Saunders M.D. Room: [facility] ENDOSCOPY [facility] Note Status: Finalized Procedure: Colonoscopy Indications: Screening for colorectal malignant neoplasm Referring MD: Edy Dyer MD Providers: Jose Saunders M.D. Impression: - Internal hemorrhoids that do not return to theanal canal, thus continuously prolapsed (Grade IV) foundon digital rectal exam. - The entire examined colon is normal. - No specimens collected. Recommendation: - Discharge patient to home. - Resume previous diet indefinitely. - Continue present medications. - Repeat colonoscopy in 10 years for screeningpurposes. - Return to primary care physician as previously scheduled. Medicines: Sedation Administered by an AnesthesiaProfessional Complications: No immediate complications. Estimated Blood Loss: Estimated blood loss: none. Procedure: The benefits, risks and alternatives of theprocedure and sedation were discussed and informed consent was obtained. All questions were answered. Please referto the signed informed consent document in the medical record. The scope was passed under direct vision.The Colonoscope [id number] was introducedthrough the anus and advanced to the the cecum, identifiedby appendiceal orifice and ileocecal valve. The colonoscopy was performed without difficulty. The patient tolerated the procedure well. The quality of the bowel preparation was good. Findings: The digital rectal exam findings include internal hemorrhoids that do not return to the anal canal, thus continuously prolapsed (GradeIV). The colon (entire examined portion) appeared normal. Electronically signed by Jose Saunders M.D. Jose Saunders M.D. 01/27/2018 8:55:29 AM Number of Addenda: 0 Note Initiated On: 01/27/2018 8:21 AM Procedure Code(s): --- Professional --- G0121, Colorectal cancer screening; colonoscopy on individual not meeting criteria for high risk Diagnosis Code(s): --- Professional --- K64.3, Fourth degree hemorrhoids Z12.11, Encounter for screening for malignant neoplasm of colon CPT copyright 2014 [employer]. All rights reserved. The codes documented in this report are preliminary and upon seed specialist reviewmay be revised to meet current compliance requirements. Recognized by the [employer] for promoting quality in endoscopy Jose Saunders MD ENDOSCOPY PROCEDURES Final Re sult from Last 3 Months or Most Recently Relevant to Health Maintenance Insurance [employer] MEDICARE HMO [employer] MEDICARE GOLD Advance Directives For more information, please contact: [phone] * Full Code (Latest Code Status on File) Date Activated Date Inactivated Comments 01/27/2018 8:01 AM 01/27/2018 11:44 AM Care Teams Receivable Manager Relationship Specialty Start Date End Date Selvin Lawrence MD [address] [place] [address] PCP - General Family Medicine 04/22/24 Evans Coelho DO Consulting Physician Gastroenterology 11/02/20
--- OUTSIDE RECORDS SUMMARY | 2024-12-22 09:50 | XMS_ITS | Encounter Summary ---
Author Organization [facility] Healthcare Address [address] [place] [address] Care Team Providers Care Account Engineer Name Role Phone Edy Dyer MD Primary Care Provider [phone] Evans Coelho DO Unavailable [phone] Le Vargas NP Primary Care Provider [phone] Edy Dyer MD Primary Care Provider [phone] Maxx Oscar MD Primary Care Provider Edy Dyer MD Primary Care Provider [phone] Selvin Lawernce MD Primary Care Provider [phone] Lindsay Ibarra NP Primary Care Provider [phone] Selvin Lawrence MD Primary Care Provider [phone] Reason for Visit * Reason Onset Date Comments Scheduling Appointments 06/09/2021 Confirmi ng mammogram appt- no answer Encounter Details Date Type Department Care Team (Late st Contact Info) Description 06/09/2021 Telephone [facility] [address] [place] [address] Zulema Vargas RT Scheduling Appointments (Confirming mammogram appt- no answer) Social History Tobacco Use Types Packs/Day Years Used Date Smoking Tobacco: Never Smokeless Tobacco: Never Alcohol Use Standard Drinks/Week Comments Not Currently [...] and Family Once a week 12/18/2019 Attends Christian Services 1 to 4 times per year 12/18/2019 Active Member of Clubs or Organizations No 12/18/2019 Attends Club or Organization Meetings Never 12/18/2019 Marital Status 12/18/2019 AUDIT-C Answer Date Recorded Frequency of Alcohol Consumption Monthly or less 12/18/2019 Average Number of Drinks 1 or 2 020 Frequency of Binge Drinking Never 11/20 Overall Financial Resource Strain (CARDIA) Answe r Date Recorded Difficulty of Paying Living Expenses Not hard at all 12/18/2019 PHQ-2 Answer Date Recorded PHQ-2 Total Score (If total score is 3 or more points, staff should administer the PHQ-9) 0 05/24/2021 [facility] - Occupational Stress [...] on file Legal Sex Female 6:16 PM VULNERABILITY RESEARCHER Gender Identity Not on file Sexual Orientation Not on file Occupation Industry Job Start Date Job End Date Not on file Not on file Not on file Not on file documented as of this encounter Plan of Treatment Not on file documented as of this encounter Visit Diagnoses Not on filedocumented in this encounter Care Teams Account Engineer Relationship Specialty Start Date End Date Edy Dyer MD PCP - General 12/30/08 07/25/21 Le Vargas NP PCP - General Family Medicine 07/26/21 06/03/22 Edy Dyer MD [address] [place], [place] [id number] PCP - General Family Medicine 06/04/22 06/24/22 Maxx Oscar MD [address] [place], [place] [id number] PCP - General Family Medicine 06/25/22 09/25/22 Edy Dyer MD [address] [address] PCP - General Family Medicine 09/26/22 12/17/22 Selvin Lawrence MD [address] [place] [address] PCP - General Family Medicine 12/18/22 12/26/22 Lindsay Ibarra NP [address] [place] [address] PCP - General Internal Medicine 12/27/22 04/21/24 Selvin Lawrence MD [address] [place] [address] PCP - General Family Medicine 04/22/24 Evans Coelho DO Consulting Physician Gastroenterology 11/02/20 documented as of this encounter
--- OUTSIDE RECORDS SUMMARY | 2024-12-22 09:50 | XMS_ITS | Encounter Summary ---
Author Organization [facility] Address [address] [place] [address] Phone Care Team Providers Care Quality Control Analyst Name Role Phone Edy Dyer MD Primary Care Provider Reason for Visit * Reason Comments Medication Refill Encounter Details Date Type Department Care Team (Late st Contact Info) Description 07/12/2021 Refill [facility] - Gastroenterology [facility] [address] [place] [address] Stephanie Diehl, PAC [address] [place] [address] Medication Refill Social History Tobacco Use Types Packs/Day Years Used Date Smoking Tobacco: Never Smokeless Tobacco: Never Alcohol Use Standard Drinks/Week Comments Not Currently 0 (1 standard drink = 0.6 oz pur e alcohol) Sexually Active Control Partners Comments Not Currently Comments No Sex and Gender Information Value Date Recorded Sex Assigned at Not on file Legal Sex Female 11:19 PM CDT Gender Identity Not on file Sexual Orientation Not on file documented as of this encounter Miscellaneous Notes * Telephone Encounter - Mary Ellen Colin RN - 07/12/2021 11:41 AM CDT Medication refilled and signed per [facility] chronic medication standing order for pediatric and adult patients. documented in this encounter Plan of Treatment Not on file documented as of this encounter Visit Diagnoses Diagnosis Gastroesophageal reflux disease, unspecified whether esophagitis present documented in this encounter Additional Health Concerns Infection Onset Date Last Indicated Resolved Time C. difficile Rule-Out 05/20/2022 05/20/20222021 5:28 PM CDT C. difficile Rule-Out 06/16/2022 06/16/20222021 11:05 AM CDT COVID - 19 Confirmed 06/21/2022 06/21/2022 022 12:16 AM CDT documented as of this encounter Care Teams Quality Control Analyst Relationship Specialty Start Date End Date Edy Dyer MD [address] [place] [address] PCP - General Family Medicine 01/16/16 documented as of this encounter
--- OUTSIDE RECORDS SUMMARY | 2024-12-22 09:50 | XMS_ITS | Clinical Summary ---
Author Organization [facility] Address [address] [place] [address] Phone Care Team Providers Care Alternative Energy Technician Name Role Phone Edy Dyer MD Primary Care Provider Allergies No known active allergies Medications magnesium hydroxide (MILK OF MAGNESIA) 400 MG/5ML Suspension Take 30 mL by mouth daily as needed. 355 mL 0 6 Active atorvastatin (LIPITOR) 80 MG Tablet Take 80 mg by mouth daily. Active citalopram (CeleXA) 20 MG Tablet Take 20 mg by mouth daily. Active famotidine (PEPCID) 20 MG Tablet Take 20 mg by mouth 2 times daily. Active cyclobenzaprine (FLEXERIL) 10 MG Tablet Take 10 mg by mouth 3 times daily as needed. Active metFORMIN (GLUCOPHAGE) 500 MG Tablet Take 500 mg by mouth 2 times daily (with meals). Active oxybutynin (DITROPAN) 5 MG Tablet Take 5 mg by mouth 2 times daily. Active pregabalin (LYRICA) 50 MG Capsule Take 50 mg by mouth 3 times daily. Active pantoprazole (PROTONIX) 40 MG Tablet Delayed ResponseIndicat ions:Gastroesop hageal reflux disease, unspecified whether esophagitis present TAKE 1 TABLET BY MOUTH TWICE A DAY 180 Tablet 1 1 Active polyethylene glycol (GLYCOLAX, MIRALAX) 17 g PackIndications :Constipation Take 1 Packet by mouth 2 times daily as needed for Constipation - 1st line. Dissolve in 4-8 oz of liquid. Indications: Constipation 90 Packet 2 Active senna (SENOKOT) 8.6 MG Tablet Take 1 Tablet by mouth 2 times daily as needed for Constipation - 3rd line. 30 Tablet 2 Active lisinopril (PRINIVIL, ZESTRIL) 10 MG Tablet Take 1 Tablet by mouth daily. 30 Tablet 2 Active Active Problems Problem Noted Date Diagnosed Date High anion gap metabolic acidosis 06/16/2022 Lactic acidosis 06/16/2022 DAREN (acute kidney injury) 06/16/2022 Acute renal failure (ARF) 05/20/2022 GERD (gastroesophageal reflux disease) 2 HLD (hyperlipidemia) 05/20/2022 Hypotension 05/20/2022 Normocytic anemia 05/20/2022 Constipation 05/20/2022 Stercoral colitis 05/20/2022 Hypokalemia 05/20/2022 Hypochloremia 05/20/2022 Hyponatremia 05/20/2022 DM2 (diabetes mellitus, type 2) 09/26/2020 HTN (hypertension) 09/26/2020 Neuropathy 09/26/2020 Immunizations Immunization Administration Dates Next Due Influenza Vaccine 08/30/2015 Influenza Vaccine, Quadrivalent, PF 08/16/2020 Influenza, Injectable, Quadrivalent 08/31/2015 Zoster Vaccine Recombinant 08/21/2020 Family History Medical History Relation Name Comments Heart Disease Father No Known Problems Mother Cancer Paternal Grandmother colon Relation Name Status Comments Father Mother Paternal Grandmother Social History Tobacco Use Types Packs/Day Years Used Date Smoking Tobacco: Never Smokeless Tobacco: Never Tobacco Cessation:Counseling Given: No Alcohol Use Standard Drinks/Week Comments Not Currently 0 (1 standard drink = 0.6 oz pur e alcohol) Sexually Active Control Partners Comments Not Currently Comments No Sex and Gender Information Value Date Recorded Sex Assigned at Not on file Legal Sex Female 11:19 PM CDT Gender Identity Not on file Sexual Orientation Not on file Last Filed Vital Signs Vital Sign Reading Time Taken Comments Blood Pressure 161/94 06/23/2022 11:00 AM CDT Pulse 70 06/23/2022 11:00 AM CDT Temperature 36.4 ??C (97.5 ??F) 06/23/2022 11:00 AM C DT Respiratory Rate 17 06/23/2022 11:00 AM CDT Oxygen Saturation 98% 06/23/2022 11:00 AM CDT Inhaled Oxygen Concentration - - Weight 75.5 kg (166 lb 6.4 oz) 06/18/2022 7:14 A M CDT Height 160 cm (5' 3 ) 06/16/2022 9:42 AM CDT Body Mass Index 29.48 06/16/2022 9:42 AM CDT Plan of Treatment Health Maintenance Due Date Last Done Comments DEXA Bone Density 1958 Diabetes: Eye Exam 1958 Diabetes: Foot Exam 1960 Hepatitis C Virus (HCV) Screening 1960 Pneumococcal Immunization (50+ years) (1 of 2 - PCV) 1977 Colonoscopy 2003 Cologuard 2008 Mammogram 2008 Colorectal Cancer Screening 05/21/2022 Diabetes: Hemoglobin A1c 11/20/2022 022, 04/20/2022, 12/19/2020, Additional history exists Immunochemical Fecal Occult Blood 05/20/2023 05/20/2022 Diabetes: Nephropathy Screening 06/16/2023 06/16/2022, 05/20/2022, 01/16/2016 Influenza Immunization (#1) 07/19/202407/20, 08/16/2020, 08/31/2015, Additional history exists SARS-COV-2 Immunization ( season) 2024 03/24/2021, 02/24/2021 Respiratory Syncytial Virus (RSV) Immunization (Adult) (1 - 1-dose 75+ series) 2033 DTaP/Tdap/Td Immunization Discontinued 12/19/2020 TdaP Immunization Completed 12/19/2020 Zoster Immunization Completed 06/20/2021, 0 Hepatitis B Immunization Aged Out No longer eligible based on patient's age to complete this topic Meningococcal Immunization (ACWY) Aged Out No longer eligible based on patient's age to complete this topic Rotavirus Immunization Aged Out No lo nger eligible based on patient's age to complete this topic Procedures Procedure Name Priority Date/Time Associated Diagnosis Comments CMP (COMPREHENSIVE METABOLIC PANEL) STAT 06/16/2022 10:04 AM CDT STOOL, OCCULT BLOOD, DIAGNOSTIC, VIA GUAIAC STAT 05/20/2022 4:21 PM CDT HEMOGLOBIN A1C W/ ESTIMATED GLUCOSE STAT 05/20/2022 11:23 AM CDT from Last 3 Months or Most Recently Relevant to Health Maintenance Results * (ABNORMAL) CMP (Comprehensive Metabolic Panel) (06/16/2022 10:04 AM CDT) SODIUM 116(LL) 136 - 144 mmol/L 06/16/2022 10:49 AM CDT [facility] POTASSIUM 4.0 3.5 - 5.1 mmol/L 06/16/2022 10:49 AM CDT [facility] CHLORIDE 78(L) 100 - 110 mmol/L 06/16/2022 10:49 AM CDT [facility] CO2, VENOUS 18(L) 22 - 32 mmol/L 06/16/2022 10:49 AM CDT [facility] ANION GAP 24.0(H) 8.0 - 20.0 mmol/L 06/16/2022 10:49 AM CDT [facility] GLUCOSE 203(H) 70 - 99 mg/dL 06/16/2022 10:49 AM CDT [facility] BUN 20 8 - 23 mg/dL 06/16/2022 10:49 AM CDT [facility] CREATININE, BLOOD 1.53(H) 0.60 - 1.10 mg/dL 06/16/2022 10:49 AM CDT [facility] BUN/CREATININE RATIO 13 12 - 20 ratio 06/16/2022 10:49 AM CDT [facility] TOTAL PROTEIN 6.4 6.0 - 8.3 g/dL 06/16/2022 10:49 AM CDT [facility] ALBUMIN 3.5 3.5 - 5.2 g/dL 06/16/2022 10:49 AM CDT [facility] Comment: The colormetric methods used for the determination of Albumin may lead to falsely elevated test results in patients suffering from renal failure or insufficiency due to interference with other proteins. A/G RATIO 1.2 1.0 - 2.0 06/16/2022 10:49 AM CDT [facility] CALCIUM 9.5 8.9 - 10.3 mg/dL 06/16/2022 10:49 AM CDT [facility] T BILI 1.1 <=1.2 mg/dL 06/16/2022 10:49 AM CDT [facility] SGOT (AST) 16 <=32 U/L 06/16/2022 10:49 AM CDT [facility] SGPT (ALT) 13 <=41 U/L 06/16/2022 10:49 AM CDT [facility] ALKALINE PHOSPHATASE 109(H) 35 - 105 U/L 06/16/2022 10:49 AM CDT [facility] GFR, ESTIMATED 38(L) >=60 06/16/2022 10:49 AM CDT [facility] Comment: Creatinine Clearance is the preferred criteria for selecting drug dose adjustments in renally impaired patients. ??The GFR is provided as additional pertinent clinical information. GFR is reported in mL/min/1.73 sq m. Blood Venous Catheter (IV) / Unknown 06/16/2022 10:04 AM CDT 06/16/2022 10:14 AM CDT us Jose Manuel Tubbs APRN, MECHANICAL TECHNICAL SERVICE SPECIALIST CHEMISTRY ORDERABLES Fi nal Result [facility] [address] [place] [address] * Stool, Occult Blood, Diagnostic (05/20/2022 4:21 PM CDT) OCCULT BLOOD DIAG, GI BLEED Negative Negative 05/20/2022 4:52 PM CDT [facility] Stool STOOL SPECIMEN / Unknown Non-Phlebotomy Collection / Unknown 05/20/2022 4:21 PM CDT 05/20/2022 4:48 PM CDT Cindy Boyle MD BODY FLUIDS & STOOLS ORDERABL ES Final Result Performing Organization Address City/[facility]/ZIP Co de Phone Number [facility] [address] [place] [address] * (ABNORMAL) Hemoglobin A1C w/ Estimated Glucose (05/20/2022 11:23 AM CDT) HGB-A1C 6.2(H) 4.0 - 6.0 % 05/20/2022 3:41 PM CDT [facility] Est Average Glucose 131.2 mg/dL 05/20/2022 3:41 PM CDT [facility] Blood Venipuncture / Unknown 05/20/2022 11:23 AM CDT 05/20/2022 11:39 AM CDT Narrative [facility] - 05/20/2022 3:41 PM CDT HEMOGLOBIN A1C: DIABETIC PATIENTS: WELL-CONTROLLED: ?? 6.2 - 7.0 INTERMEDIATE WELL-CONTROLLED: ??7.0 - 9.0 POORLY-CONTROLLED: ??>9.0 Cindy Boyle MD CHEMISTRY ORDERABLES Final Re sult Performing Organization Address City/[facility]/ZIP Co de Phone Number [facility] [address] [place] [address] from Last 3 Months or Most Recently Relevant to Health Maintenance Insurance MEDICARE C [employer] Advance Directives * Full Code (Latest Code Status on File) Date Activated Date Inactivated Comments 06/16/2022 2:02 PM 06/23/2022 3:44 PM CPR-Full Liseth tment: FULL ARREST: Attempt Resuscitation/CPR wit intubation and mechanical ventilation. PRE-ARREST: Use entire range of life support measures to stabilize the patient. * Full Code Date Activated Date Inactivated Comments 05/20/2022 7:58 PM 05/22/2022 3:21 PM CPR-Full Treat ment: FULL ARREST: Attempt Resuscitation/CPR wit intubation and mechanical ventilation. PRE-ARREST: Use entire range of life support measures to stabilize the patient. Care Teams Alternative Energy Technician Relationship Specialty Start Date End Date Edy Dyer MD [address] [place] [address] PCP - General Family Medicine 01/16/16
--- OUTSIDE RECORDS SUMMARY | 2024-12-22 09:50 | XMS_ITS | Clinical Summary ---
Author Organization [facility] Medical Office Building B Address [address] [place] [address] Care Team Providers Care Instructor Dancing Name Role Phone Evans Coelho DO Unavailable [phone] Selvin Lawrence MD Primary Care Provider [phone] Allergies No known active allergies Medications blood glucose diagnostic (FREESTYLE LITE STRIPS) stripIndicatio ns:Type 2 diabetes mellitus without complication, without long-term current use of insulin ([facility] ([facility]) Use one strip BID 100 each 3 05/26/20 18 Active blood-glucose meter (FreeStyle Limon Lite) kit Use as directed 1 each [...] by mouth daily 90 tablet 4 09/08/20 24 Active flash glucose scanning reader (FreeStyle Yair 2 [place]) misc Use as directed to monitor blood [...] BY MOUTH TWICE A DAY 60 capsule 12/17/ 025 Discontinued Active Problems Problem Noted Date [...] monitor. Assessment & Plan (12/18/2023 10:32 AM RECORDS MANAGEMENT COORDINATOR): Normotensive. Continue lisinopril, hydrochlorothiazide. Will continue to monitor. Reviewed dash diet. DAREN (acute kidney injury) 06/16/2022 High anion gap metabolic acidosis 06/16/2022 Lactic acidosis 06/16/2022 Hospital discharge follow-up 06/06/2022 Assessment & Plan (06/06/2022 9:46 AM CDT): I have reviewed the hospital record, medications, and relevant testing from Radha Suzi Torres's recent admission. Complications and discharge plan [...] wellness. Assessment & Plan (10/03/2021 10:56 AM RECORDS MANAGEMENT COORDINATOR): AWV in office today Patient needs cervical cancer screen, will plan to do at upcoming visits. Due for mammogram, ordered SLUMS score today 20, will repeat in 3 months at [facility] Assessment & Plan (08/16/2020 10:11 AM CDT): [...] associate d with type 2 diabetes mellitus ([facility]) 10/31/2018 Assessment & Plan (08/16/2020 10:13 AM CDT): Continues follow up with operations supervisor 2nd shift; we will get her last visit note from earlier in the year. Excessive ear wax, bilateral 04/11/2018 Assessment & Plan (04/11/2018 4:13 PM CDT): Excessive Ear Wax Prevention Cerumen accumulation or excessive ear wax can cause symptoms like-Hearing loss ?Earache ?Ear fullness ?Itchiness ?Reflex cough ?Dizziness ?Tinnitus Normal ears use a cotton ball dipped in mineral oil, olive oil, Baby oil, or [place] oil and place in the external canal [...] ordered Assessment & Plan (01/05/2022 8:45 AM RECORDS MANAGEMENT COORDINATOR): Healthy, low carbohydrate lifestyle and exercise for 150min/week recommended Assessment & Plan (10/03/2021 10:54 AM RECORDS MANAGEMENT COORDINATOR): Healthy, low carbohydrate lifestyle and exercise for [...] greens, fat-free milk, cottage cheese, nuts like [id number], protein bars with 10-15 g of protein and 20-30 g of carbohydrate. Choose whole grain breads and pastas, brown rice, sweet potatoes, read onions--these whole grains absorb more slowly thus blood sugar does not surge so high so quickly. Avoid drinking juice, eat a piece of fruit instead. Tremor of both hands 12/02/2017 Assessment & Plan (12/04/2017 7:43 AM RECORDS MANAGEMENT COORDINATOR): New onset. Will discuss with dr. Dyer [...] SI Assessment & Plan (01/05/2022 8:44 AM RECORDS MANAGEMENT COORDINATOR): Mood is stable on the Celexa 20 mg Denies SI Assessment & Plan (10/03/2021 10:54 AM RECORDS MANAGEMENT COORDINATOR): Mood is stable on the Celexa 20 mg Denies SI Assessment & Plan (08/16/2020 10:13 AM CDT): Controlled. We are continuing citalopram 20 mg daily Assessment & Plan (09/30/2017 10:49 AM RECORDS MANAGEMENT COORDINATOR): Psychological condition is improving with treatment. Continue [...] asso ciated with type 2 diabetes mellitus ([facility]) 07/30/2017 Assessment & Plan (09/08/2024 8:50 AM CDT): No acute changes. Continue monitoring feet daily. Assessment & Plan (07/09/2024 3:59 PM CDT): Continue monitoring feet daily. Always wear good supportive shoes. Continue with good blood glucose control. Assessment & Plan (10/03/2021 10:54 AM RECORDS MANAGEMENT COORDINATOR): Neuropathy stable, continues Lyrica Assessment & Plan [...] 04/02/2015 Assessment & Plan (10/03/2021 10:52 AM RECORDS MANAGEMENT COORDINATOR): Stable, continues Oxybutynin Type 2 diabetes mellitus [...] monitor. Assessment & Plan (12/18/2023 10:32 AM RECORDS MANAGEMENT COORDINATOR): A1c 5.9%. Keep up the great work! Will continue to monitor. Assessment & Plan (04/20/2022 8:48 AM CDT): Continues Metformin 500 mg daily Last A1c x 3 months ago was 6.5%, will get A1c today with other labs patient is due for. Assessment & Plan (01/05/2022 8:43 AM RECORDS MANAGEMENT COORDINATOR): Awaiting labs, continues Atorvastatin 80 mg daily Denies side effects Assessment & Plan (10/03/2021 10:53 AM RECORDS MANAGEMENT COORDINATOR): Lipid panel well controlled, continues Lipitor Assessment [...] for. Assessment & Plan (01/05/2022 8:43 AM RECORDS MANAGEMENT COORDINATOR): Awaiting labs, patient to get drawn today Continue Metformin 500 mg daily. Assessment & Plan (10/03/2021 10:52 AM RECORDS MANAGEMENT COORDINATOR): A1c is 6.3%, continues Metformin 500 mg daily Due for urine Microalbumin Kidney function noted to decrease, discussed increasing water intake and rechecking prior to next visit. Assessment & Plan (07/30/2017 1:24 PM CDT): Diabetes is improving with lifestyle modifications. Continue current treatment regimen. Regular aerobic exercise. Discussed foot care. recommended she follow back up with fabricator artificial breast Diabetes will be reassessed in 6 months Labs ordered today. Adiposity 02/05/2013 Assessment & Plan (09/08/2024 8:50 AM CDT): Encourage heart healthy diabetic diet. Assessment & Plan (08/16/2020 10:14 AM CDT): BMI Follow-up includes: nutrition counseling, exercise counseling and education provided. Assessment & Plan (07/30/2017 1:22 PM CDT): BMI Follow-up includes: exercise counseling. Chronic back pain 02/05/2013 Assessment & Plan (10/03/2021 10:52 AM RECORDS MANAGEMENT COORDINATOR): Sx stable, continue current regimen. Hypertension due to endocrine disorder 3 Assessment & Plan (04/20/2022 8:50 AM CDT): Initial BP elevated in office today, repeat much improved. Patient continues Lisinopril 40 mg daily, we dc'd pt's HCTZ at prior visit due d/t hypotension and dizziness, both have improved. Pt's home bp's are ranging 110's/70-80's. Assessment & Plan (01/05/2022 8:44 AM RECORDS MANAGEMENT COORDINATOR): BP stable in office but patient brings in home bp log and they range 88-105 SBP. Pt does note that she gets light headed at times. Will decrease HCTZ to 12.5 daily. Home BP log and send in numbers in 1 week. Assessment & Plan (10/03/2021 10:53 AM RECORDS MANAGEMENT COORDINATOR): Home BP's range 100-120/60-70 Slightly elevated in [...] Famotidine. Assessment & Plan (10/03/2021 10:55 AM RECORDS MANAGEMENT COORDINATOR): Sx stable, continues Pantoprazole. Assessment & Plan (11/02/2020 2:17 PM RECORDS MANAGEMENT COORDINATOR): Dr. Coelho Gastric emptying study normal Awaiting EGD Assessment & Plan (09/24/2020 9:38 AM RECORDS MANAGEMENT COORDINATOR): Adding Pepcid, one tab in the morning, [...] 10/31/2018 Assessment & Plan (11/21/2017 8:54 AM RECORDS MANAGEMENT COORDINATOR): Will try medrol dose dylan. May continue flexeril and naproxen. I recommended physical therapy. F/u in 4-[address] Dyer to assess progress. Assessment & Plan (09/30/2017 1:00 PM RECORDS MANAGEMENT COORDINATOR): Continue flexeril. Pneumonia ruled out with negative chest x-ray and cbc. She has a f/u with Dr. Dyer 10/03 Abnormal vaginal bleeding 02/05/2013 Overview (02/23/2017): Abnormal vaginal bleeding Encounters Date Type Department Care Team Description 10/21/2024 ACO Clinical Pharmacist [facility] Accountable Care Organization [address] [place] [id number] Xiomara Jordan RPh 09/24/2024 Telephone [facility] [address] [id number] Selvin Lawrence MD Test Results 09/23/2024 Telephone [place] [phone] Tomasa Garrett Unsuccessful Phone Call 1 ([employer] dm eye exam) from Last 3 Months Immunizations Name Administration Dates Next Due Influenza, [...] Pcv20 12/18/2023 Tdap 12/19/2020 ZOSTER Recombinant 06/20/2021,08/21/2020 Surgical History Surgery Date Site/Laterality Comments CARPAL TUNNEL RELEASE Carpal tunnel release BACK SURGERY Back surgery BACK SURGERY Back surgery BACK SURGERY 11/18/1994 - 11/17/1995 Back surgery OTHER SURGICAL HISTORY Back surgery 1994 OTHER SURGICAL HISTORY Shoulder surgery 1999 OTHER SURGICAL HISTORY Heel surgery 1989 Medical History Medical History Date Comments Hx Other Medical bulging disc lo wer lumbar area Hypertension Hypertension Osteoarthritis Osteoarthritis Hyperlipidemia Hyperlipidemia Diabetes mellitus (HCC) 2012 Diabetes Hyperlipidemia GERD (gastroesophageal reflux disease) Type 2 diabetes mellitus (HCC) Depression Acute renal failure (ARF) (HCC) 05/20/2022 Diabetes mellitus (HCC) 03/09/2013 Constipation 05/20/2022 Family History Medical History Relation Name Comments Coronary artery disease Father Joselo nary artery disease; Heart disease Father Hypertension Father Hypertension; / Hypertension; Stroke Father Hypertension Mother Hypertension; / Hypertension; Arthritis Other 1 Family Hx Arthritis; Cancer Other 1 Family Hx Cancer; Diabetes Other 1 Family Hx Diabetes mellit us; Cancer Other 4 Family history of Cancer; Heart disease Other 5 Family history of Heart disease; Hypertension Other 6 Family history of Hypertension; Relation Name Status Comments Daughter Marta Alive Father Mother Alive Other 1 Family Hx Alive Other 2 Family Hx Alive Other 3 Family Hx Alive Other 4 Other 5 Other 6 Son 1 Orestes Alive Son 2 Rupesh Alive Social History Tobacco Use Types Packs/Day Years [...] and Family Once a week 12/18/2019 Attends [employer] 1 to 4 times per year [...] you are drinking? Patient does not drink 4 Q3: How often do you have si x or more drinks on one occasion? Never 12/18/2023 Overall Financial Resource Strain (CARDIA) Answe r Date Recorded Difficulty of Paying Living Expenses Not hard at all 12/18/2019 PHQ-2 Answer Date Recorded PHQ-2 Total Score (If total score is 3 or more points, staff should administer the PHQ-9) 0 09/08/2024 [facility] [place] of Occupat ional Health - Occupational Stress [...] on file Legal Sex Female 6:16 PM RECORDS MANAGEMENT COORDINATOR Gender Identity Not on file Sexual Orientation Not on file Occupation Industry Job Start Date Job End Date Not on file Not on file Not on file Not on file Obstetrics History Para Term AB IAB SAB Ectopic Multiple Livin g Live Births 0 0 0 0 0 0 0 0 0 0 0 Last Filed Vital Signs Vital Sign Reading [...] 09/08/2024 7:35 AM CDT Plan of Treatment Health Maintenance Due Date Last Done Comments Osteoporosis Screening-Bone Density Scan 1960 Hepatitis B Screening 1976 Breast Cancer Screening-Mammogram 02/06/2024 02/05/2023, 04/15/2020, 12/08/2018, Additional history exists Covid-19 Vaccine (2023-12 5 season) 2024 03/24/2021, 02/24/2021 Albumin Creatinine Ratio, Urine 12/18/2024 12/18/2023, 03/21/2023, 01/22/2022, Additional history exists Hemoglobin A1C 03/02/2025 09/01/2024, 06/19, 12/18/2023, Additional history exists Foot Exam 07/09/2025 07/09/2024, 05/0 07/2023, 01/05/2022, Additional history exists Lipid Panel 09/01/2025 09/01/2024, 11/20, 03/21/2023, Additional history exists eGFR 09/01/2025 09/01/2024, 11/20, 03/21/2023, Additional history exists Dilated Eye Exam 09/03/2025 09/03/2023, 04/2022, 08/18/2022, Additional history exists Depression Screening 09/08/2025 09/08/2024, 07/09/2024, 03/26/2023, Additional history exists Fall Risk Assessment 09/08/2025 09/08/2024, 07/09/2024, 12/18/2023, Additional history exists Well Visit 65+ 09/08/2025 09/08/2024, 07/2023, 10/02/2021, Additional history exists Colon Cancer Screening-Colonoscopy 01/28/2028 01/27/2018 DTaP/Tdap/Td Vaccine (2 - Td or Tdap) 12/19/2030 12/19/2020 Colon Cancer Screening-CT Colonography Discontinued 01/27/2018 Colon Cancer Screening-DNA Stool Discontinued 01/28/20 Colon Cancer Screening-FIT Discontinued 01/27/2018 Colon Cancer Screening-Sigmoidoscopy Discontinued 01/27/2018 Hepatitis C Screening Completed 12/18/2019 Zoster Vaccine Completed 06/20/2021, 08/21/2020 Pneumococcal vaccine 65+ Completed 12/18/2023 Influenza Vaccine Completed 09/08/2024, , 12/18/2022, Additional history exists Procedures Procedure Name Priority Date/Time Associated Diagnosis [...] CREATININE RATIO, URINE Routine 12/18/2023 10:21 AM RECORDS MANAGEMENT COORDINATOR Type 2 diabetes mellitus with hyperlipidemia (HCC) [...] HEPATITIS C ANTIBODY Routine 12/18/2019 10:15 AM RECORDS MANAGEMENT COORDINATOR Encounter for hepatitis C screening test for low risk patient COLONOSCOPY 01/27/2018 8:21 AM CDT from Last 3 Months or Most Recently Relevant to Health Maintenance Results * (ABNORMAL) eGFR (09/01/2024 9:08 AM CDT) eGFR 59(L) >=60 mL/min/1. 73 m2 Comment: [...] was last reviewed 2021. Testing performed by: [facility], [address] [place] [address]., [address] Blood 09/01/2024 9:08 AM CDT 09/01/2024 12:46 PM CDT Johnathan Ibarra NP LAB BLOOD ORDERABLES Final Result Performing Organization Address City/[facility]/ZIP Co de Phone Number CHRISTOPHER LEDBETTER ([place]) 1 [facility] [place] [address] * (ABNORMAL) Hemoglobin A1c (09/01/2024 9:08 AM CDT) [facility] Hgb A1C 6.2(H) 4.0 - 5.6 % Comment:Testing performed by : [address] [address] Estimated Average Glucose 131 mg/dL CHRISTOPHER LEDBETTER ([place]) Comment: The ADA recommends reporting an estimated Average Glucose (eAG) with all Hemoglobin A1c results using the equation derived from a study of 507 normal and diabetic adults. ??Minority populations were underrepresented and children were not included. ?? (Diabetes Care 31:5964-2039, 2008). ??The eAG is not equivalent to a fasting glucose. Testing performed by: [address] [address] Blood 09/01/2024 9:08 AM CDT 09/01/2024 12:37 PM CDT us Johnathan Ibarra NP LAB BLOOD ORDERABLES Final Result Performing Organization Address City/[facility]/ZIP Co de Phone Number CHRISTOPHER LEDBETTER ([place]) 1 [facility] [place] [address] * (ABNORMAL) Lipid panel (09/01/2024 9:08 AM CDT) [facility] Cholesterol 256(H) 30 - 199 mg/dL Comment: [...] last revised on 2018. Testing performed by: [address] [address] Triglycerides 67 <=149 mg/dL CHRISTOPHER GUZMAN) Comment: Interpretive Data Ages < or = [...] last revised on 2018. Testing performed by: [address] [address] HDL 58 >=40 mg/dL CHRISTOPHER LEDBETTER ([place]) [...] last revised on 2018. Testing performed by: [address], [address] LDL, calculated 187(H) <=129 mg/dL CHRISTOPHER LEDBETTER [...] last revised on 2024. Testing performed by: [address] [place] [address] Non-HDL Cholesterol 198 mg/dL CHRISTOPHER LEDBTETER ([place]) Comment: Interpretive Data Ages < or [...] last revised on 2018. Testing performed by: [address] [address] Chol/HDL ratio 4 GABRIELLE LEDBETTER ([place]) Comment:Testing performed by : [address] [address] Blood 09/01/2024 9:08 AM CDT 09/01/2024 12:37 PM CDT Johnathan Ibarra CABLE MAINTAINER LAB BLOOD ORDERABLES Final Result CHRISTOPHER LEDBETTER ([place]) 1 [facility] Department of Laboratories [place], [place] [id number] * Albumin Creatinine Ratio, Urine (12/18/2023 10:21 AM RECORDS MANAGEMENT COORDINATOR) Albumin Ur <12.0 mg/L CHRISTOPHER AM H ([place]) Comment: Interpretive Data No reference range established. Current interpretive data was last revised 2019. Testing performed by: [address] [address] Creatinine Ur 96.3 mg/dL CHRISTOPHER LEDBETTER ([place]) Comment: Interpretive Data No reference range established. Current interpretive data was last revised 2019. Testing performed by: [address] [address] Albumin Creatinine Ratio, Ur <12 1 - 29 mg/g VIDHIBASIL ANATOLY ([place]) Comment:Testing performed by : [facility], [id number] [place] [address], [place]., [address] Urine 12/18/2023 10:2 1 AM RECORDS MANAGEMENT COORDINATOR 12/18/2023 4:17 PM RECORDS MANAGEMENT COORDINATOR Johnathan Ibarra NP LAB URINE ORDERABLES Final Result CHRISTOPHER ANATOLY ([place]) 1 [facility] Department [place] [address] * DIABETES EYE EXAM (09/03/2023) us Historical Provider HEALTH MAINTENANCE Final Result * [...] There has been no suspicious interval change. Johnathan W. Ibarra CABLE MAINTAINER IMG MAMMO PROCEDURES Final Result * Hepatitis C antibody (12/18/2019 10:15 AM RECORDS MANAGEMENT COORDINATOR) Hep C Ab Negative Negative CHRISTOPHER ANATOLY ([place]) Comment:Testing performed by : [facility], [address] [place] [address], [place]., [address] Blood specimen (specimen) 12/18/2019 10:15 AM RECORDS MANAGEMENT COORDINATOR 12/18/2019 7:07 PM RECORDS MANAGEMENT COORDINATOR us Edy Dyer MD LAB MICROBIOLOGY - GENERAL ORDERABLES Final Result CHRISTOPHER ANATOLY ([place]) 1 [facility] Department [place] [address] * COLONOSCOPY (01/27/2018 8:21 AM CDT) Anatomical Region Laterality Modality Other Narrative Procedure Note Jose Saunders MD - 01/27/2018 8:21 AM CDT [facility] Patient Name: Radha Torres Procedure Date: 01/27/2018 8:21 AM Date of : 1960 Admit Type: Outpatient Age: 57 Gender: Female Attending MD: Jose Saunders M.D. Room: [facility] ENDOSCOPY CAPSULE Note Status: Finalized Procedure: [...] scope was passed under direct vision.The Colonoscope [id number] was introducedthrough the anus and advanced to [...] malignant neoplasm of colon CPT copyright 2014 [employer]. All rights reserved. The codes documented in this report are preliminary and upon conductor orchestra reviewmay be revised to meet current compliance requirements. Recognized by the [employer] for promoting quality in endoscopy Jose Saunders MD ENDOSCOPY PROCEDURES Final Re sult from Last 3 Months or Most Recently Relevant to Health Maintenance Insurance [employer] MEDICARE HMO [employer] MEDICARE GOLD Advance Directives For more information, please contact: [phone] * Full Code (Latest Code Status on File) Date Activated Date Inactivated Comments 01/27/2018 8:01 AM 01/27/2018 11:44 AM Care Teams Instructor Dancing Relationship Specialty Start Date End Date Selvin Lawrence MD [address] [place] [address] PCP - General Family Medicine 04/22/24 Evans Coelho DO Consulting Physician Gastroenterology 11/02/20
--- OUTSIDE RECORDS SUMMARY | 2024-12-22 09:50 | XMS_ITS | Encounter Summary ---
Author Organization [facility] Healthcare Address [address] [place] [id number] Care Team Providers Care Press Tender Short Goods Name Role Phone Edy Dyer MD Primary Care Provider [phone] Evans Coelho DO Unavailable [phone] Le Vargas NP Primary Care Provider [phone] Edy Dyer MD Primary Care Provider [phone] Maxx Oscar MD Primary Care Provider Edy Dyer MD Primary Care Provider [phone] Selvin Lawrence MD Primary Care Provider [phone] Lindsay Ibarra NP Primary Care Provider [phone] Selvin Lawrence MD Primary Care Provider [phone] Reason for Visit * Reason Onset Date Comments Scheduling Appointments 05/26/2021 Confirmi ng mammogram appt Encounter Details Date Type Department Care Team (Late st Contact Info) Description 05/26/2021 Telephone [facility] [address] [place] [address] Zulema Vargas RT Scheduling Appointments (Confirming mammogram appt) Social History Tobacco Use Types Packs/Day Years [...] and Family Once a week 12/18/2019 Attends [employer] 1 to 4 times per year [...] staff should administer the PHQ-9) 0 05/24/2021 [facility] of Occupat ional Health - Occupational Stress [...] on file Legal Sex Female 6:16 PM SUPERVISOR FERTILIZER Gender Identity Not on file Sexual Orientation Not on file Occupation Industry Job Start Date Job End Date Not on file Not on file Not on file Not on file documented as of this encounter Plan of Treatment Not on file documented as of this encounter Visit Diagnoses Not on filedocumented in this encounter Care Teams Press Tender Short Goods Relationship Specialty Start Date End Date Edy Dyer MD PCP - General 12/30/08 07/25/21 Le Vargas, KATRINA PCP - General Family Medicine 07/26/21 06/03/22 Edy Dyer MD [address] [place] [address] PCP - General Family Medicine 06/04/22 06/24/22 Maxx Oscar MD [address] [place] [address] PCP - General Family Medicine 06/25/22 09/25/22 Edy Dyer MD [address] [address] PCP - General Family Medicine 09/26/22 12/17/22 Selvin Lawrence MD [address] [place] [address] PCP - General Family Medicine 12/18/22 12/26/22 Lindsay Ibarra NP [address] [place] [address] PCP - General Internal Medicine 12/27/22 04/21/24 Selvin Lawrence MD [address] [place] [address] PCP - General Family Medicine 04/22/24 Evans Coelho DO Consulting Physician Gastroenterology 11/02/20 documented as of this encounter
== END 2024-12-22 10:30 | disposition home or self-care (01) ==
PROVIDERS: Emergency Provider Nurse Practitioner Family; PCP Nurse Practitioner Family
DX: R07.81 Pleurodynia (principal); M25.551 Pain in right hip; W10.9XXA Fall (on) (from) unspecified stairs and steps, initial encounter; I10 Essential (primary) hypertension; E11.9 Type 2 diabetes mellitus without complications
CPT/HCPCS: 71100; 73502; 99214; G0463